=== PATIENT | female | born 1965 | race Caucasian/White ===

== ENCOUNTER 2022-01-22 11:42 | Emergency (ER) | payer BC ==
[2022-01-22] VITALS (7 sets, daily range): BP systolic 102–126; BP diastolic 70–78
[~2022-01-22] VITALS: Ht 162.6 cm; Wt 76.0 kg
[2022-01-22] MEDS ORDERED: HYDROCO/APAP1 TA9 PO (13:17)
== END 2022-01-22 13:30 | disposition home or self-care (01) | DRG 563 ==
LOC: ED 11:42
DX: S92.515A Nondisplaced fracture of proximal phalanx of left lesser toe(s), initial encounter for closed fracture (principal); W23.0XXA Caught, crushed, jammed, or pinched between moving objects, initial encounter; W01.0XXA Fall on same level from slipping, tripping and stumbling without subsequent striking against object, initial encounter

== ENCOUNTER 2022-06-27 15:31 | Emergency (ER) | payer BC ==
[~2022-06-27] VITALS: Ht 162.6 cm; Wt 80.0 kg
[~2022-06-27 15:31] MED LIST: HYDROCO/APAP1 TA9 PO
[2022-06-27] MEDS ORDERED: OMEPRAZOLE (16:19)
[2022-06-27] MEDS ORDERED: SODIUM BICAR325 MG PO (16:19)
[2022-06-27] MEDS ORDERED: TRAZODONE50 MG PO (16:20)
[2022-06-27 17:29] LABS: HEMATOCRIT 38.6 % (37.0-47.0); HEMOGLOBIN 12.5 g/dl (12.0-16.0); IMMATURE GRANULOCYTES 0.2 % (0.0-5.0); MEAN CELL VOLUME 86.7 fL CALC (80.0-100.0); MEAN CORPUSCULAR HGB 28.1 pG CALC (26.0-32.0); MEAN CORPUSCULAR HGB CONC 32.4 g/dL CAL (32.0-36.0); NEUT# 5.26 thou/uL (2.00-7.15); RED BLOOD COUNT 4.45 mill/uL (4.20-5.60); RED CELL DISTRI WIDTH 14.6 % (11.5-15.5)
[2022-06-27 17:49] LABS: ALBUMIN 3.9 g/dL (3.2-5.0); ALKALINE PHOSPHATASE 60 u/l (38-126); ANION GAP 11 (6-22 (CALC)); BILIRUBIN, TOTAL 0.2 mg/dL (0.0-1.4); BUN 14 mg/dL (7-17); BUN/CREATININE RATIO 17 (12-20 (CALC)); CARBON DIOXIDE 25 mmol/l (22-30); CHLORIDE 106 mmol/l (95-108); CREATININE 0.8 mg/dL (0.5-1.0); GFR FOR AFR.AMER. > 60 ML/MIN (>=60 (CALC)); GFR OTHER RACES > 60 ML/MIN (>=60 (CALC)); POTASSIUM 4.1 mmol/l (3.5-5.1); SGOT/AST 26 u/l (14-36); SODIUM 138 mmol/l (137-146); TOTAL PROTEIN 6.7 g/dL (6.3-8.2)
[2022-06-27 19:22] LABS: URINE BILIRUBIN - DIPSTICK NEGATIVE (NEGATIVE); URINE BLOOD DIPSTICK TRACE-INTACT (NEGATIVE); URINE COLOR YELLOW; URINE GLUCOSE - DIPSTICK NEGATIVE (NEGATIVE); URINE KETONE NEGATIVE (NEGATIVE); URINE LEUK ESTERASE NEGATIVE (NEGATIVE); URINE PROTEIN - DIPSTICK NEGATIVE (NEG-TRACE); URINE SPECIFIC GRAVITY <=1.005; URINE UROBILINOGEN - DIPSTICK 0.2 E.U./dL (0.2)
[2022-06-27 19:25] LABS: URINE NITRITE - DIPSTICK NEGATIVE (Negative)
[2022-06-27] MEDS ORDERED: NAPROXEN500 MG PO (20:15)
[2022-06-27] MEDS ORDERED: METHOCARBAMOL500 MG PO (20:15)
[2022-06-27 20:24] VITALS: BP 119/76
== END 2022-06-27 20:33 | disposition home or self-care (01) | DRG 605 ==
LOC: ED 15:31
PROVIDERS: Nurse Practitioner
DX: S20.211A Contusion of right front wall of thorax, initial encounter (principal); S93.401A Sprain of unspecified ligament of right ankle, initial encounter; S90.511A Abrasion, right ankle, initial encounter; W13.3XXA Fall through floor, initial encounter; Y93.H3 Activity, building and construction; Y92.009 Unspecified place in unspecified non-institutional (private) residence as the place of occurrence of the external cause
CPT/HCPCS: Q9967

== ENCOUNTER 2022-09-23 11:19 | Inpatient (IN) | payer BC ==
[2022-09-23] VITALS (10 sets, daily range): BP systolic 116–153; BP diastolic 45–77
[~2022-09-23] VITALS: Ht 162.6 cm; Wt 82.8 kg
[~2022-09-23 11:19] MED LIST changes: +METHOCARBAMOL500 MG PO; +NAPROXEN500 MG PO; +OMEPRAZOLE PO; +SODIUM BICAR325 MG PO; +TRAZODONE50 MG PO
[2022-09-23 13:42] LABS: BASO% 0.6 % (0-3); EOS% 1.2 % (0-8); IMMATURE GRANULOCYTES 0.3 % (0.0-5.0); LYMPH% 36.1 % (15-41); MEAN CELL VOLUME 82.6 fL CALC (80.0-100.0); MEAN CORPUSCULAR HGB 24.5 pG CALC (26.0-32.0); MEAN CORPUSCULAR HGB CONC 29.6 g/dL CAL (32.0-36.0); MONO% 9.6 % (2-13); NEUT# 3.43 thou/uL (2.00-7.15); NEUT% 52.2 % (42-76); RED BLOOD COUNT 2.41 mill/uL (4.20-5.60); RED CELL DISTRI WIDTH 14.7 % (11.5-15.5); URINE BILIRUBIN - DIPSTICK NEGATIVE (NEGATIVE); URINE BLOOD DIPSTICK NEGATIVE (NEGATIVE); URINE COLOR YELLOW; URINE GLUCOSE - DIPSTICK NEGATIVE (NEGATIVE); URINE KETONE NEGATIVE (NEGATIVE); URINE LEUK ESTERASE NEGATIVE (NEGATIVE); URINE PH 6.5 (4.5-8.0); URINE PROTEIN - DIPSTICK NEGATIVE (NEG-TRACE); URINE SPECIFIC GRAVITY <=1.005; URINE UROBILINOGEN - DIPSTICK 0.2 E.U./dL (0.2)
[2022-09-23 13:44] LABS: HEMOGLOBIN 5.9 g/dl (12.0-16.0)
[2022-09-23 13:45] LABS: HEMATOCRIT 19.9 % (37.0-47.0)
[2022-09-23 13:49] LABS: URINE NITRITE - DIPSTICK NEGATIVE (Negative)
[2022-09-23 13:58] LABS: PROTHROMBIN TIME 10.3 SECONDS (9.0-12.5)
[2022-09-23 14:01] LABS: ALBUMIN 3.5 g/dL (3.2-5.0); ALKALINE PHOSPHATASE 39 u/l (38-126); ANION GAP 9 (6-22 (CALC)); BUN 18 mg/dL (7-17); BUN/CREATININE RATIO 24 (12-20 (CALC)); CARBON DIOXIDE 24 mmol/l (22-30); CHLORIDE 110 mmol/l (95-108); CREATININE 0.8 mg/dL (0.5-1.0); GFR FOR AFR.AMER. > 60 ML/MIN (>=60 (CALC)); GFR OTHER RACES > 60 ML/MIN (>=60 (CALC)); POTASSIUM 4.3 mmol/l (3.5-5.1); SGOT/AST 21 u/l (14-36); SODIUM 139 mmol/l (137-146)
[2022-09-24] VITALS (12 sets, daily range): BP systolic 106–153; BP diastolic 59–78
[2022-09-24 05:28] LABS: EOS% 1.3 % (0-8); HEMATOCRIT 25.2 % (37.0-47.0); HEMOGLOBIN 7.7 g/dl (12.0-16.0); IMMATURE GRANULOCYTES 0.1 % (0.0-5.0); LYMPH% 33.6 % (15-41); MEAN CORPUSCULAR HGB 25.7 pG CALC (26.0-32.0); MEAN CORPUSCULAR HGB CONC 30.6 g/dL CAL (32.0-36.0); MONO% 8.1 % (2-13); NEUT# 3.8 thou/uL (2.00-7.15); NEUT% 55.9 % (42-76); RED CELL DISTRI WIDTH 14.4 % (11.5-15.5)
[2022-09-24 05:47] LABS: ANION GAP 7 (6-22 (CALC)); BUN 12 mg/dL (7-17); BUN/CREATININE RATIO 16 (12-20 (CALC)); CARBON DIOXIDE 23 mmol/l (22-30); CHLORIDE 112 mmol/l (95-108); CREATININE 0.8 mg/dL (0.5-1.0); GFR FOR AFR.AMER. > 60 ML/MIN (>=60 (CALC)); GFR OTHER RACES > 60 ML/MIN (>=60 (CALC)); MAGNESIUM 1.9 mg/dL (1.6-2.3); POTASSIUM 4.5 mmol/l (3.5-5.1); SODIUM 138 mmol/l (137-146)
[2022-09-24] MEDS ORDERED: NEURONTIN100 MG PO (13:17)
== END 2022-09-24 15:15 | disposition home or self-care (01) | DRG 812 ==
LOC: ED 11:19 → MS2 14:59 → ED-I 15:02 → MS2 09-24 00:04
PROVIDERS: Internal Medicine; Nurse Practitioner; ADMIT Internal Medicine; ATTEND Internal Medicine
PROC: 30233N1 Transfusion of Nonautologous Red Blood Cells into Peripheral Vein, Percutaneous Approach (ICD-10-PCS; principal; 2022-09-23)
PROC: 30233N1 Transfusion of Nonautologous Red Blood Cells into Peripheral Vein, Percutaneous Approach (ICD-10-PCS; 2022-09-23)
PROC: 0DJD8ZZ Inspection of Lower Intestinal Tract, Via Natural or Artificial Opening Endoscopic (ICD-10-PCS; 2022-09-24)
PROC: 0DJ08ZZ Inspection of Upper Intestinal Tract, Via Natural or Artificial Opening Endoscopic (ICD-10-PCS; 2022-09-24)
DX: D62 Acute posthemorrhagic anemia (principal); K92.2 Gastrointestinal hemorrhage, unspecified; G25.81 Restless legs syndrome; K57.30 Diverticulosis of large intestine without perforation or abscess without bleeding; K64.8 Other hemorrhoids; K44.9 Diaphragmatic hernia without obstruction or gangrene; Z20.822 Contact with and (suspected) exposure to COVID-19
CPT/HCPCS: P9016; S0164